=== PATIENT | female | born 2000 | race Caucasian/White ===

== ENCOUNTER 2023-04-25 03:17 | Observation (INO) | payer OTHER ==
[2023-04-25 06:45] LABS: HEMATOCRIT 39.1 % (32.4-45.2); HEMOGLOBIN 12.9 GM/dL (10.7-15.3); MEAN CELL VOLUME 84.7 fl (80-96); PLATELET COUNT 224 10^3/uL (134-434); RBC 4.61 M/mm3 (3.60-5.2); RDW 12.9 % (11.6-15.6); WHITE BLOOD COUNT 9.5 K/mm3 (4.0-10.0)
[2023-04-25 06:59] LABS: POTASSIUM 3.6 mmol/L (3.5-5.1)
[2023-04-25 07:01] LABS: ALBUMIN 3.8 g/dl (3.4-5.0); CALCIUM 8.4 mg/dL (8.5-10.1)
[2023-04-25 07:02] LABS: BLOOD UREA NITROGEN 15.2 mg/dL (7-18)
[2023-04-25 07:04] LABS: CREATININE 0.9 mg/dL (0.55-1.3)
[2023-04-25 07:06] LABS: BILIRUBIN,TOTAL 0.6 mg/dL (0.2-1); TOT PROT 6.9 g/dl (6.4-8.2)
[2023-04-25 08:23] LABS: URINE APPEARANCE CLEAR; URINE BILIRUBIN 1+ (NEGATIVE); URINE COLOR DK YELLOW; URINE GLUCOSE (UA) NEGATIVE (NEGATIVE); URINE KETONE TRACE (NEGATIVE); URINE LEUK ESTERASE NEGATIVE (NEGATIVE); URINE NITRITE NEGATIVE (NEGATIVE); URINE PROTEIN NEGATIVE (NEGATIVE)
[2023-04-25] MEDS ORDERED: SODIUM CHLORIDE 1,000 ML IV STA ×2 (08:25→12:48)
[2023-04-25] MEDS ORDERED: ACETAMINOPHEN 500 MG TABLET (FP) PO ONE (08:26)
[2023-04-25] MEDS ORDERED: FAMOTIDINE 20 MG/50 ML IVPB 20 MG/50 ML MG IVPB ONE ×2 (08:26→08:42)
[2023-04-25] MEDS ORDERED: ONDANSETRON 4 MG/2 ML VIAL IVPUSH ONE (08:26)
[2023-04-25] MEDS ORDERED: ONDANSETRON 4 MG/2 ML VIAL ONE (08:40)
[2023-04-25] MEDS ORDERED: ACETAMINOPHEN 325 MG TABLET (FP) ONE (08:40)
[2023-04-25 08:51] LABS: ANISOCYTOSIS 0; MACROCYTOSIS 0
[2023-04-25] MEDS ORDERED: MEROPENEM 1 GM in DEXTROSE 5%-WATER 100 ML IVPB ONE (12:56)
[2023-04-25] MEDS ORDERED: MEROPENEM 1 GM VIAL (RESTRICTED TO ID) IVPB ONE (13:30)
[2023-04-25] MEDS ORDERED: DEXTROSE 5%-NORMAL SALINE 1,000 ML IV SCH ×2 (16:00)
[2023-04-25 18:14] VITALS: BMI 24.5
[2023-04-25 19:46] LABS: INR 1.32 (0.83-1.09); PROTHROMBIN TIME (PATIENT) 15.3 SEC (9.7-13.0)
[2023-04-25 19:49] LABS: ACTIVATED PTT 32.3 SECONDS (25.2-36.5)
[2023-04-26] MEDS ORDERED: KETOROLAC TROMETHAMINE 15 MG/ML VIAL IVPUSH PRN (08:34)
[2023-04-26] MEDS ORDERED: ONDANSETRON 4 MG/2 ML VIAL IVPUSH PRN (08:35)
[2023-04-26] MEDS ORDERED: SODIUM CHLORIDE 1,000 ML IV SCH (08:45)
[2023-04-26 09:41] LABS: BASO % 0.6 % (0-2.0); EOS % 1.5 % (0-4.5); HEMATOCRIT 34.6 % (32.4-45.2); HEMOGLOBIN 11.5 GM/dL (10.7-15.3); MCH 27.6 pg (25.7-33.7); MCHC 33.1 g/dl (32.0-36.0); MEAN CELL VOLUME 83.3 fl (80-96); NEUT % 58.9 % (42.8-82.8); PLATELET COUNT 234 10^3/uL (134-434); RBC 4.16 M/mm3 (3.60-5.2); RDW 13.1 % (11.6-15.6); WHITE BLOOD COUNT 4.6 K/mm3 (4.0-10.0)
[2023-04-26] MEDS ORDERED: SPIRONOLACTONE 25 MG TABLET PO SCH (10:00)
[2023-04-26 10:20] LABS: CALCIUM 8.2 mg/dL (8.5-10.1)
[2023-04-26 10:21] LABS: ALBUMIN 3.1 g/dl (3.4-5.0); BLOOD UREA NITROGEN 8.6 mg/dL (7-18)
[2023-04-26 10:24] LABS: CREATININE 0.8 mg/dL (0.55-1.3)
[2023-04-26 10:25] LABS: TOT PROT 5.7 g/dl (6.4-8.2)
[2023-04-26 10:26] LABS: BILIRUBIN,TOTAL 0.3 mg/dL (0.2-1)
[2023-04-26 14:42] VITALS: RESP 18
[2023-04-26 14:58] VITALS: BP 104/59; TEMP 98.3
[2023-04-26 15:08] VITALS: PULSE 51
== END 2023-04-26 18:02 | disposition home or self-care (01) ==
LOC: JER 03:17 → UNDOADMOB 13:10 → INTOOBSV 13:10 → JERBED 13:10 → J8W 15:49 → JERBED 17:05 → J8W 17:05
PROVIDERS: ADMIT Internal Medicine; ATTEND Internal Medicine
PROC: 3E0337Z Introduction of Electrolytic and Water Balance Substance into Peripheral Vein, Percutaneous Approach (ICD-10-PCS; principal; 2023-04-25)
PROC: 3E033GC Introduction of Other Therapeutic Substance into Peripheral Vein, Percutaneous Approach (ICD-10-PCS; 2023-04-25)
PROC: 3E033NZ Introduction of Analgesics, Hypnotics, Sedatives into Peripheral Vein, Percutaneous Approach (ICD-10-PCS; 2023-04-25)
DX: K52.9 Noninfective gastroenteritis and colitis, unspecified (principal); K80.50 Calculus of bile duct without cholangitis or cholecystitis without obstruction; G43.909 Migraine, unspecified, not intractable, without status migrainosus; L70.0 Acne vulgaris; Z88.8 Allergy status to other drugs, medicaments and biological substances
CPT/HCPCS: 36415; 76705-TC; 80053; 81003; 83690; 83735; 84100; 84703; 85025; 85610; 85730; 86850; 86900; 86901; 87086; 93005; 93010; 99285-25; G0378